=== PATIENT | female | born 1940 | race Hispanic/Latino ===

== ENCOUNTER 2023-01-18 08:50 | Inpatient (IN) | payer MEDICARE ==
[~2023-01-18] VITALS: Ht 142.2 cm; Wt 44.0 kg
[~2023-01-18 08:50] MED LIST: ALENDRONATE SOD70 MG PO; ASPIR 8181 MG; CALTRATE 600 W1 EACH PO; FERROUS SULFAT325 M1; LISINOPRIL-HCT1 EAC2 PO; METOPROLOL SUCC50 MG PO; METRONIDAZOLE500 MG PO; NITROGLYCERIN0.4 MG SL; NORCO 5-325 TA1 EACH PO; PAXLOVID 300-11 EACH PO; PRAVASTATIN SOD10 MG; PROLIA60 MG/1 ML; PROTONIX IV40 MG PO; TOPROL XL50 MG PO; TRICOR145 MG PO
[2023-01-18] MEDS ORDERED: SODIUM CHLORIDE 0.9% 1000ML 1,000 ML IV STA (08:57)
[2023-01-18 09:13] LABS: BASOPHILS % 0.2 % (0.0-1.0); HEMATOCRIT 44.3 % (34.2-44.1); HEMOGLOBIN 14.9 g/dL (12.0-16.0); LYMPHOCYTES # (AUTO) 1.4 (1.0-3.2); LYMPHOCYTES % 11.3 % (18.0-39.1); MEAN CORPUSCULAR HEMOGLOBIN 30.2 pg (28-32); MEAN CORPUSCULAR HGB CONC 33.6 g/dL (31-35); MEAN CORPUSCULAR VOLUME 89.9 fL (81-99); MONOCYTES # (AUTO) 0.5 (0.2-0.8); MONOCYTES % 3.8 % (4.4-11.3); NEUTROPHILS # (AUTO) 10.1 (2.1-6.9); NEUTROPHILS % 84.2 % (38.7-80.0); PLATELET COUNT 246 x10e3/uL (140-360); RED BLOOD COUNT 4.93 x10e6/uL (3.6-5.1); RED CELL DISTRIBUTION WIDTH 14.3 % (11.7-14.4); WHITE BLOOD COUNT 12.04 x10e3/uL (4.8-10.8)
[2023-01-18 09:37] LABS: ALBUMIN 3.5 g/dL (3.5-5.0); ALBUMIN/GLOBULIN RATIO 0.6 (0.8-2.0); ANION GAP 24.6 mmol/L (8-16); CALCIUM 10.5 mg/dL (8.4-10.2); CREATININE, SERUM 3.07 mg/dL (0.57-1.11); MAGNESIUM 2.8 MG/DL (1.3-2.1)
[2023-01-18 09:38] LABS: POTASSIUM 5.6 mmol/L (3.5-5.1)
[2023-01-18 10:07] LABS: INR 1.01; PARTIAL THROMBOPLASTIN TIME 18.6 seconds (23.8-35.5); PROTHROMBIN TIME 13.9 seconds (11.9-14.5)
[2023-01-18 10:30] LABS: STREPTOCOCCUS GRP A ANTIGEN NEGATIVE (NEGATIVE)
[2023-01-18 10:32] LABS: INFLUENZAE A&B ANTIGEN (RAPID) NEGATIVE (NEGATIVE)
[2023-01-18] MEDS ORDERED: ASPIRIN 300 MG SUPP PR STA (10:34)
[2023-01-18] MEDS ORDERED: ONDANSETRON HCL INJ 2MG/ML 2ML 2 MG/ML VIAL IV PRN (10:45)
[2023-01-18] MEDS: SODIUM CHLORIDE 0.9% 1000ML 1,000 ML IV SCH ×2 (10:57→16:13)
[2023-01-18 11:08] LABS: CLARITY,URINE CLOUDY (CLEAR); COLOR,URINE YELLOW (YELLOW); LEUKOCYTE ESTERASE ,URINE SMALL (NEGATIVE); NITRITE,URINE NEGATIVE (NEGATIVE); PROTEIN,URINE DIPSTICK 2+ (NEGATIVE)
[2023-01-18 11:09] LABS: KETONES,URINE TRACE (NEGATIVE); URINE UROBILINOGEN 0.2 mg/dL (0.2 - 1)
[2023-01-18 11:20] LABS: BACTERIA,URINE MANY /HPF; EPITHELIAL CELLS,URINE FEW /LPF; TRANSITIONAL EPI CELLS,URINE RARE
[2023-01-18 11:21] LABS: RBC,URINE 0-5 /HPF (0-5)
[2023-01-18] MEDS ORDERED: PROPOFOL IV EMULSION 10 MG/ML 20 ML VIAL ONE (13:40)
[2023-01-18] MEDS ORDERED: MELATONIN 3 MG TAB PO PRN (13:45)
[2023-01-18] MEDS ORDERED: GUAIFENESIN/DEXTROMETHORPHAN LIQD 5 ML UDC NG PRN (13:45)
[2023-01-18] MEDS ORDERED: BENZONATATE 100 MG CAP PO PRN (13:45)
[2023-01-18] MEDS ORDERED: ALBUTEROL/IPRATROPIUM 3 ML NEB NEB PRN (13:45)
[2023-01-18] MEDS ORDERED: SIMETHICONE 80 MG CHEW PO PRN (13:45)
[2023-01-18] MEDS ORDERED: ACETAMINOPHEN 325 MG TAB PO PRN (13:45)
[2023-01-18 14:53] VITALS: PULSE 89; RESP 18; O2SAT 98
[2023-01-18 16:44] VITALS: BP 101/67; PULSE 89; RESP 18; TEMP 98; O2SAT 98
[2023-01-18 17:16] VITALS: BP 101/67; PULSE 89; RESP 18; TEMP 97.4; O2SAT 98
[2023-01-18 19:45] VITALS: PULSE 63; RESP 18; O2SAT 97
[2023-01-18 20:00] VITALS: BP 172/55; PULSE 63; RESP 18; TEMP 97.7; O2SAT 98
[2023-01-18 22:00] VITALS: BP 169/71; PULSE 74; RESP 18; TEMP 98.7; O2SAT 98
[2023-01-19] VITALS (57 sets, daily range): BP systolic 113–191; BP diastolic 43–135; PULSE 40–158; RESP 3–24; TEMP 98–99.1; O2SAT 92–100
[2023-01-19] MEDS: SODIUM CHLORIDE 0.9% 1000ML 1,000 ML IV SCH (02:57)
[2023-01-19 05:57] LABS: BASOPHILS % 0.2 % (0.0-1.0); HEMATOCRIT 38.1 % (34.2-44.1); HEMOGLOBIN 12.4 g/dL (12.0-16.0); LYMPHOCYTES # (AUTO) 1.2 (1.0-3.2); LYMPHOCYTES % 5.6 % (18.0-39.1); MEAN CORPUSCULAR HGB CONC 32.5 g/dL (31-35); MEAN CORPUSCULAR VOLUME 92.3 fL (81-99); MONOCYTES # (AUTO) 0.8 (0.2-0.8); MONOCYTES % 3.4 % (4.4-11.3); NEUTROPHILS # (AUTO) 19.8 (2.1-6.9); NEUTROPHILS % 90.3 % (38.7-80.0); PLATELET COUNT 178 x10e3/uL (140-360); RED BLOOD COUNT 4.13 x10e6/uL (3.6-5.1); RED CELL DISTRIBUTION WIDTH 14.6 % (11.7-14.4)
[2023-01-19 06:15] LABS: WHITE BLOOD COUNT 21.98 x10e3/uL (4.8-10.8)
[2023-01-19 06:30] LABS: ALBUMIN 2.9 g/dL (3.5-5.0); ALBUMIN/GLOBULIN RATIO 0.6 (0.8-2.0); ANION GAP 20.4 mmol/L (8-16); CALCIUM 8.8 mg/dL (8.4-10.2); CREATININE, SERUM 2.24 mg/dL (0.57-1.11); POTASSIUM 4.4 mmol/L (3.5-5.1)
[2023-01-19 10:06] LABS: BAND NEUTROPHILS % (MANUAL) 3 %; LYMPHOCYTES % (MANUAL) 6 % (19-48); MONOCYTES % (MANUAL) 4 % (3.4-9.0); NEUTROPHILS % (MANUAL) 86 % (40-74); PLATELET ESTIMATE ADEQUATE; PLATELET MORPHOLOGY COMMENT NORMAL; RBC MORPHOLOGY COMMENT NORMAL
[2023-01-19] MEDS ORDERED: CLONIDINE HCL 0.2 MG/24 HR 1 EA PATCH TOP SCH (10:30)
[2023-01-19 10:33] LABS: CREATININE,URINE RANDOM 162.25 mg/dL (47-110)
[2023-01-19] MEDS: SODIUM BICARBONATE 8.4% SYRING 100 ML in DEXTROSE 5% 1,000 ML IV SCH ×3 (11:13→23:18)
[2023-01-19] MEDS ORDERED: DILTIAZEM HCL 5 MG/ML 5 ML VIAL IV STA (11:50)
[2023-01-19] MEDS ORDERED: DILTIAZEM HCL VIAL 5 ML ONE (11:50)
[2023-01-19] MEDS ORDERED: SODIUM CHLORIDE 0.9% 1000ML 1,000 ML ONE (12:00)
[2023-01-19] MEDS: METOPROLOL TARTRATE 25 MG TAB PO SCH ×2 (12:10→21:36)
[2023-01-19] MEDS ORDERED: AMIODARONE HCL 150 MG/100 ML BAG IV ONE (12:15)
[2023-01-19] MEDS ORDERED: AMIODARONE HCL 100 ML IV ONE (12:15)
[2023-01-19] MEDS ORDERED: LACTATED RINGER'S 1,000 ML ONE (12:26)
[2023-01-19] MEDS ORDERED: SODIUM CHLORIDE 0.9% 1000ML 1,000 ML IV SCH (12:30)
[2023-01-19] MEDS ORDERED: AMIODARONE 900MG 500 ML IV SCH ×2 (12:30→18:45)
[2023-01-19] MEDS ORDERED: LACTATED RINGER'S 500 ML INJ ONE (12:45)
[2023-01-19] MEDS: DILTIAZEM HCL 125 ML IV SCH (13:27)
[2023-01-19] MEDS ORDERED: DIGOXIN INJ 0.25 MG/ML 2 ML AMP IV ONE (13:30)
[2023-01-19 16:23] LABS: ANION GAP 16.5 mmol/L (8-16); CALCIUM 8.4 mg/dL (8.4-10.2); CREATININE, SERUM 1.68 mg/dL (0.57-1.11); POTASSIUM 3.5 mmol/L (3.5-5.1)
[2023-01-19] MEDS ORDERED: CARVEDILOL 3.125 MG TAB PO SCH (17:00)
[2023-01-19] MEDS: MUPIROCIN 2% OINT 22 GM TUBE TOP SCH (17:38)
[2023-01-20] VITALS (63 sets, daily range): BP systolic 100–171; BP diastolic 39–74; PULSE 52–77; RESP 10–18; TEMP 98.4–99.3; O2SAT 98–100
[2023-01-20] MEDS: METOPROLOL TARTRATE 25 MG TAB PO SCH ×3 (05:42→19:15)
[2023-01-20 06:15] LABS: BASOPHILS % 0.1 % (0.0-1.0); EOSINOPHILS % 0.1 % (0.0-6.0); HEMATOCRIT 29.7 % (34.2-44.1); HEMOGLOBIN 10.3 g/dL (12.0-16.0); LYMPHOCYTES # (AUTO) 1.7 (1.0-3.2); LYMPHOCYTES % 11.6 % (18.0-39.1); MEAN CORPUSCULAR HEMOGLOBIN 30.1 pg (28-32); MEAN CORPUSCULAR HGB CONC 34.7 g/dL (31-35); MEAN CORPUSCULAR VOLUME 86.8 fL (81-99); MONOCYTES # (AUTO) 0.8 (0.2-0.8); MONOCYTES % 5.6 % (4.4-11.3); NEUTROPHILS % 81.7 % (38.7-80.0); PLATELET COUNT 135 x10e3/uL (140-360); RED BLOOD COUNT 3.42 x10e6/uL (3.6-5.1); RED CELL DISTRIBUTION WIDTH 13.8 % (11.7-14.4); WHITE BLOOD COUNT 14.72 x10e3/uL (4.8-10.8)
[2023-01-20 06:48] LABS: ALBUMIN 2.2 g/dL (3.5-5.0); ALBUMIN/GLOBULIN RATIO 0.6 (0.8-2.0); ANION GAP 9.7 mmol/L (8-16); CALCIUM 7.9 mg/dL (8.4-10.2); CREATININE, SERUM 1.28 mg/dL (0.57-1.11); MAGNESIUM 1.5 MG/DL (1.3-2.1)
[2023-01-20 06:54] LABS: POTASSIUM 2.7 mmol/L (3.5-5.1)
[2023-01-20] MEDS: SODIUM BICARBONATE 8.4% SYRING 100 ML in DEXTROSE 5% 1,000 ML IV SCH (08:19)
[2023-01-20] MEDS: POTASSIUM CHLORIDE 20MEQ/100ML 100 ML IV SCH ×2 (08:19→09:52)
[2023-01-20] MEDS: MUPIROCIN 2% OINT 22 GM TUBE TOP SCH ×2 (08:21→19:13)
[2023-01-20] MEDS ORDERED: MAGNESIUM SULFATE 2GM/50ML 50 ML IV ONE (12:00)
[2023-01-20] MEDS ORDERED: POTASSIUM CHLORIDE 10MEQ/100ML 300 ML IV ONE (12:00)
[2023-01-20] MEDS ORDERED: POTASSIUM CHLORIDE 20 MEQ TAB CR PO ONE (12:00)
[2023-01-20] MEDS ORDERED: POTASSIUM PHOSPHATE 15 MM in SODIUM CHLORIDE 0.9% 250ML 250 ML IV ONE ×2 (13:00→17:00)
[2023-01-20] MEDS: DILTIAZEM HCL 125 ML IV SCH (13:15)
[2023-01-20] MEDS ORDERED: CARVEDILOL 12.5 MG TAB PO SCH (17:00)
[2023-01-21] VITALS (42 sets, daily range): BP systolic 95–192; BP diastolic 41–100; PULSE 31–153; RESP 10–18; TEMP 98.8–99.3; O2SAT 99–100
[2023-01-21] MEDS: METOPROLOL TARTRATE 25 MG TAB PO SCH ×2 (06:00→14:00)
[2023-01-21 06:19] LABS: HEMATOCRIT 30.7 % (34.2-44.1); HEMOGLOBIN 10.4 g/dL (12.0-16.0); MEAN CORPUSCULAR HGB CONC 33.9 g/dL (31-35); MEAN CORPUSCULAR VOLUME 88.5 fL (81-99); PLATELET COUNT 126 x10e3/uL (140-360); RED BLOOD COUNT 3.47 x10e6/uL (3.6-5.1); RED CELL DISTRIBUTION WIDTH 13.8 % (11.7-14.4); WHITE BLOOD COUNT 9.84 x10e3/uL (4.8-10.8)
[2023-01-21 06:43] LABS: ALBUMIN/GLOBULIN RATIO 0.6 (0.8-2.0); ANION GAP 9.3 mmol/L (8-16); CALCIUM 7.8 mg/dL (8.4-10.2); CREATININE, SERUM 1.01 mg/dL (0.57-1.11); POTASSIUM 4.3 mmol/L (3.5-5.1)
[2023-01-21 07:03] LABS: MAGNESIUM 1.9 MG/DL (1.3-2.1); PHOSPHORUS 2.4 MG/DL (2.3-4.7)
[2023-01-21 07:56] LABS: LYMPHOCYTES % (MANUAL) 11 % (19-48); MONOCYTES % (MANUAL) 5 % (3.4-9.0); NEUTROPHILS % (MANUAL) 83 % (40-74); PLATELET ESTIMATE SLIGHTLY DECREASED
[2023-01-21 07:57] LABS: PLATELET MORPHOLOGY COMMENT NORMAL; RBC MORPHOLOGY COMMENT NORMAL
[2023-01-21] MEDS: BALSAM PERU/CASTOR OIL 60 GM OINT...G. TP SCH (08:50)
[2023-01-21] MEDS: MUPIROCIN 2% OINT 22 GM TUBE TOP SCH ×2 (08:50→20:05)
[2023-01-21] MEDS: DILTIAZEM HCL 125 ML IV SCH (11:21)
[2023-01-21] MEDS ORDERED: DILTIAZEM HCL 125 ML IV PRN (15:30)
[2023-01-22] VITALS (63 sets, daily range): BP systolic 95–211; BP diastolic 41–161; PULSE 61–143; RESP 10–23; TEMP 97.8–98.7; O2SAT 97–100
[2023-01-22 06:09] LABS: ALBUMIN 2.2 g/dL (3.5-5.0); ALBUMIN/GLOBULIN RATIO 0.6 (0.8-2.0); ANION GAP 13.2 mmol/L (8-16); CALCIUM 8.4 mg/dL (8.4-10.2); CREATININE, SERUM 0.99 mg/dL (0.57-1.11); MAGNESIUM 1.7 MG/DL (1.3-2.1); PHOSPHORUS 2.5 MG/DL (2.3-4.7); POTASSIUM 4.2 mmol/L (3.5-5.1)
[2023-01-22] MEDS ORDERED: METOPROLOL TARTRATE INJ 1 MG/ML VIAL IV PRN ×2 (08:00→18:15)
[2023-01-22] MEDS: NIFEDIPINE CR 30 MG TAB PO SCH (08:26)
[2023-01-22] MEDS: HYDRALAZINE HCL 20 MG/ML VIAL IV PRN ×2 (09:20→20:43)
[2023-01-22] MEDS: BALSAM PERU/CASTOR OIL 60 GM OINT...G. TP SCH (09:20)
[2023-01-22] MEDS: MUPIROCIN 2% OINT 22 GM TUBE TOP SCH ×2 (09:21→20:43)
[2023-01-22] MEDS ORDERED: MAGNESIUM SULF 1GRAM/DEXTROSE 100 ML IV ONE (10:30)
[2023-01-22] MEDS ORDERED: FENTANYL CITRATE/PF 100MCG/2 ML INJ ONE (14:17)
[2023-01-22] MEDS ORDERED: METOPROLOL TARTRATE INJ 1 MG/ML VIAL ONE (17:53)
[2023-01-22] MEDS: DEXTROSE 5%/0.45% SOD CHL 1,000 ML IV SCH (18:06)
[2023-01-23] VITALS (23 sets, daily range): BP systolic 113–183; BP diastolic 36–97; PULSE 65–99; RESP 11–21; TEMP 97.4–99.6; O2SAT 100
[2023-01-23] MEDS: HYDRALAZINE HCL 20 MG/ML VIAL IV PRN ×3 (04:18→22:12)
[2023-01-23 05:51] LABS: HEMOGLOBIN 10.6 g/dL (12.0-16.0); MEAN CORPUSCULAR HEMOGLOBIN 29.7 pg (28-32); MEAN CORPUSCULAR HGB CONC 34.2 g/dL (31-35); MEAN CORPUSCULAR VOLUME 86.8 fL (81-99); PLATELET COUNT 146 x10e3/uL (140-360); RED BLOOD COUNT 3.57 x10e6/uL (3.6-5.1); RED CELL DISTRIBUTION WIDTH 13.6 % (11.7-14.4); WHITE BLOOD COUNT 10.63 x10e3/uL (4.8-10.8)
[2023-01-23 06:07] LABS: ALBUMIN 2.2 g/dL (3.5-5.0); ALBUMIN/GLOBULIN RATIO 0.6 (0.8-2.0); ANION GAP 11.9 mmol/L (8-16); CALCIUM 8.5 mg/dL (8.4-10.2); CREATININE, SERUM 0.95 mg/dL (0.57-1.11); POTASSIUM 3.9 mmol/L (3.5-5.1)
[2023-01-23] MEDS: NIFEDIPINE CR 30 MG TAB PO SCH (08:07)
[2023-01-23] MEDS: MUPIROCIN 2% OINT 22 GM TUBE TOP SCH ×2 (08:34→21:17)
[2023-01-23] MEDS: BALSAM PERU/CASTOR OIL 60 GM OINT...G. TP SCH (08:35)
[2023-01-23 11:36] LABS: LYMPHOCYTES % (MANUAL) 11 % (19-48); MONOCYTES % (MANUAL) 4 % (3.4-9.0); NEUTROPHILS % (MANUAL) 85 % (40-74); PLATELET ESTIMATE ADEQUATE; PLATELET MORPHOLOGY COMMENT NORMAL
[2023-01-23] MEDS: DEXTROSE 5%/0.45% SOD CHL 1,000 ML IV SCH (12:36)
[2023-01-24] VITALS (18 sets, daily range): BP systolic 91–200; BP diastolic 37–123; PULSE 78–101; RESP 11–19; TEMP 98–99.4; O2SAT 100
[2023-01-24] MEDS ORDERED: PANTOPRAZOLE SO40 MG PO (06:33)
[2023-01-24] MEDS ORDERED: SENNA LAX8.6 MG PO (06:33)
[2023-01-24] MEDS ORDERED: CATAPRES-TTS 21 EACH TOP (06:33)
[2023-01-24] MEDS ORDERED: ONDANSETRON ODT4 MG PO (06:33)
[2023-01-24] MEDS ORDERED: METOPROLOL TART25 MG PO (06:34)
[2023-01-24] MEDS ORDERED: CEPHALEXIN500 MG PO (06:34)
[2023-01-24] MEDS: NIFEDIPINE CR 30 MG TAB PO SCH (08:14)
[2023-01-24] MEDS: MUPIROCIN 2% OINT 22 GM TUBE TOP SCH (08:14)
[2023-01-24] MEDS: BALSAM PERU/CASTOR OIL 60 GM OINT...G. TP SCH (08:14)
[2023-01-24 09:35] LABS: CALCIUM 8.1 mg/dL (8.4-10.2); CREATININE, SERUM 0.88 mg/dL (0.57-1.11)
[2023-01-25] MEDS ORDERED: AMIODARONE HCL 200 MG TAB PO SCH (09:00)
== END 2023-01-24 14:08 | disposition hospice, home (50) | DRG 871 ==
LOC: ER 08:52 → ERHOLD 10:55 → MED/SURG2 14:07 → ICU 01-19 11:59
PROVIDERS: ADMIT Internal Medicine; ATTEND Internal Medicine
PROC: 02HV33Z Insertion of Infusion Device into Superior Vena Cava, Percutaneous Approach (ICD-10-PCS; principal; 2023-01-19)
PROC: B548ZZA Ultrasonography of Superior Vena Cava, Guidance (ICD-10-PCS; 2023-01-19)
PROC: 0DH63UZ Insertion of Feeding Device into Stomach, Percutaneous Approach (ICD-10-PCS; 2023-01-22)
PROC: 3E04329 Introduction of Other Anti-infective into Central Vein, Percutaneous Approach (ICD-10-PCS; 2023-01-22)
DX: A41.89 Other specified sepsis (principal); E43 Unspecified severe protein-calorie malnutrition; U07.1 COVID-19; G93.41 Metabolic encephalopathy; R65.21 Severe sepsis with septic shock; N39.0 Urinary tract infection, site not specified; N17.9 Acute kidney failure, unspecified; E87.0 Hyperosmolality and hypernatremia; M62.82 Rhabdomyolysis; E87.20 Acidosis, unspecified; N18.30 Chronic kidney disease, stage 3 unspecified; K29.70 Gastritis, unspecified, without bleeding; E11.22 Type 2 diabetes mellitus with diabetic chronic kidney disease; I12.9 Hypertensive chronic kidney disease with stage 1 through stage 4 chronic kidney disease, or unspecified chronic kidney disease; Z51.5 Encounter for palliative care; Z66 Do not resuscitate; R13.12 Dysphagia, oropharyngeal phase; E87.5 Hyperkalemia; I48.91 Unspecified atrial fibrillation; E86.0 Dehydration; E83.52 Hypercalcemia; J01.30 Acute sphenoidal sinusitis, unspecified; F03.90 Unspecified dementia, unspecified severity, without behavioral disturbance, psychotic disturbance, mood disturbance, and anxiety; R63.4 Abnormal weight loss; R62.7 Adult failure to thrive; E87.6 Hypokalemia; R39.2 Extrarenal uremia; E83.42 Hypomagnesemia; E83.39 Other disorders of phosphorus metabolism; K20.90 Esophagitis, unspecified without bleeding; Z68.21 Body mass index [BMI] 21.0-21.9, adult
CPT/HCPCS: 36415; 43246; 51700; 70450; 71045; 74176; 74230; 76770; 80048; 80053; 81001; 82550; 82570; 82948; 83518; 83735; 83880; 84100; 84134; 84300; 84484; 85007; 85025; 85027; 85610; 85730; 87040; 87070; 87086; 87186; 87400; 93005; 93306; 94799; 99252; 99284; J0696; J1160; J2185; J3475; J3480; J7030; J7050; J7070; U0002